=== PATIENT | female | born 1980 | race Caucasian/White ===

== ENCOUNTER 2017-12-11 07:55 | Observation (INO) | payer OTHER ==
[~2017-12-11] VITALS: Ht 160 cm; Wt 89.4 kg
[~2017-12-11 07:55] MED LIST: DSS100 PO; FERR-89 PO; IBUP-2071 PO; PERCT PO; PREN1TAB80 PO
[2017-12-11 08:35] VITALS: BP 110/65
== END 2017-12-11 09:10 | disposition home or self-care (01) ==
LOC: 4S 07:55
PROVIDERS: ADMIT Obstetrics & Gynecology; ATTEND Obstetrics & Gynecology
DX: O30.003 Twin pregnancy, unspecified number of placenta and unspecified number of amniotic sacs, third trimester (principal); O26.893 Other specified pregnancy related conditions, third trimester; M54.5 Low back pain; O99.333 Smoking (tobacco) complicating pregnancy, third trimester; F17.210 Nicotine dependence, cigarettes, uncomplicated; O09.523 Supervision of elderly multigravida, third trimester; Z3A.36 36 weeks gestation of pregnancy
CPT/HCPCS: 59025; G0378

== ENCOUNTER 2017-12-13 12:25 | Inpatient (IN) | payer OTHER ==
[~2017-12-13] VITALS: Ht 160 cm; Wt 91.6 kg
[2017-12-13] MEDS ORDERED: RINGERS SOLUTION,LACTATED 1,000 ML IV ONE (13:45)
[2017-12-13] MEDS ORDERED: METOCLOPRAMIDE HCL 5 MG/ML 2 ML VIAL IVP ONE (13:45)
[2017-12-13] MEDS ORDERED: CITRIC ACID/SODIUM CITRATE 30 ML SOLUTION UDCUP PO ONE (13:45)
[2017-12-13 14:09] LABS: BASOPHILS % (AUTO) 0.4 % (0.0-2.0); HEMATOCRIT 38.4 % (36-46); HEMOGLOBIN 13.5 g/dL (12.0-16.0); LYMPHOCYTES # (AUTO) 2.2 K/uL (1.0-4.8); MEAN CORPUSCULAR HEMOGLOBIN 34.1 pg (26.0-34.0); MEAN CORPUSCULAR HGB CONC 35.2 G/dL (31.0-37.0); MEAN CORPUSCULAR VOLUME 97 fL (80-100); MONOCYTES # (AUTO) 0.8 K/uL (0.1-1.0); MONOCYTES % (AUTO) 6.3 % (2.0-9.0); NEUTROPHILS # (AUTO) 9.2 K/uL (1.8-7.7); NEUTROPHILS % (AUTO) 74.3 % (40.0-70.0); PLATELET COUNT (AUTO)-OB 198 K/uL (150-450); RED BLOOD CELL COUNT(AUTO) 3.96 MIL/uL (4.00-5.20); RED CELL DISTRIBUTION WIDTH 13.7 % (11.5-14.5)
[2017-12-13 16:46] VITALS: BP 118/74
[2017-12-14] MEDS ORDERED: METOCLOPRAMIDE HCL 5 MG/ML 2 ML VIAL IVP ONE (06:00)
[2017-12-14] MEDS ORDERED: CITRIC ACID/SODIUM CITRATE 30 ML SOLUTION UDCUP PO ONE (06:00)
[2017-12-14] MEDS ORDERED: MORPHINE SULFATE/PF 0.5 MG/ML 10 ML AMP ONE (06:21)
[2017-12-14] MEDS ORDERED: FentaNYL CITRATE-PF 100 MCG/2 ML VIAL ONE (06:21)
[2017-12-14] MEDS ORDERED: ACETAMINOPHEN 1000 MG/ISO-OSM 100 ML IV ONE (06:21)
[2017-12-14] MEDS ORDERED: CeFAZolin 2 GM/DEXTROSE 50 ML IV ONE (06:21)
[2017-12-14] MEDS ORDERED: FentaNYL CITRATE-PF 100 MCG/2 ML VIAL IVP PRN (08:15)
[2017-12-14] MEDS ORDERED: ONDANSETRON HCL 4 MG/2 ML VIAL IVP PRN ×2 (08:15)
[2017-12-14] MEDS ORDERED: NALBUPHINE HCL 10 MG/ML VIAL IVP PRN ×3 (08:15)
[2017-12-14] MEDS ORDERED: DiphenhydrAMINE HCL 50 MG/ML VIAL IVP PRN ×2 (08:15)
[2017-12-14] MEDS ORDERED: NALOXONE HCL 0.4 MG/ML VIAL IVP PRN (08:15)
[2017-12-14] MEDS ORDERED: MORPHINE SULFATE 10 MG/ML SYRINGE IVP PRN (08:15)
[2017-12-14] MEDS ORDERED: DEXAMETHASONE SOD PHOS 4 MG/ML VIAL IVP PRN (08:15)
[2017-12-14] MEDS ORDERED: LANOLIN 7 GM OINTMENT TP PRN (08:45)
[2017-12-14] MEDS ORDERED: ACETAMINOPHEN/CODEINE 300-30 MG TABLET PO PRN (08:45)
[2017-12-14] MEDS: DEXTROSE 5%-0.45% SODIUM CHL 1,000 ML IV SCH ×3 (13:46→20:46)
[2017-12-14] MEDS: ACETAMINOPHEN 1000 MG/ISO-OSM 100 ML IV SCH ×2 (15:55→23:29)
[2017-12-14] MEDS ORDERED: OXYGEN THERAPY IH SCH ×4 (20:00)
[2017-12-14] MEDS: MAGNESIUM HYDROXIDE SUSPENSION 30 ML UDCUP PO SCH (20:46)
[2017-12-15] MEDS: IBUPROFEN 800 MG TABLET PO SCH ×4 (02:31→20:39)
[2017-12-15] MEDS: DEXTROSE 5%-0.45% SODIUM CHL 1,000 ML IV SCH (03:00)
[2017-12-15] MEDS ORDERED: OXYTOCIN 10 UNITS/ML VIAL IM ONE (05:19)
[2017-12-15] MEDS ORDERED: EPHEDrine SULFATE 50 MG/ML VIAL IM ONE (05:19)
[2017-12-15] MEDS ORDERED: LIDOCAINE HCL/PF 2% 5 ML VIAL IM ONE (05:19)
[2017-12-15] MEDS ORDERED: 0.9% SODIUM CHLORIDE 10 ML VIAL IVP ONE (05:19)
[2017-12-15] MEDS ORDERED: METHYLERGONOVINE MALEATE 0.2 MG/ML VIAL ONE (07:25)
[2017-12-15] MEDS: MAGNESIUM HYDROXIDE SUSPENSION 30 ML UDCUP PO SCH ×2 (08:21→20:39)
[2017-12-15] MEDS: ACETAMINOPHEN/CODEINE 300-30 MG TABLET PO PRN ×2 (16:35→23:17)
[2017-12-16] MEDS: IBUPROFEN 800 MG TABLET PO SCH ×4 (02:36→20:45)
[2017-12-16] MEDS: ACETAMINOPHEN/CODEINE 300-30 MG TABLET PO PRN ×4 (06:07→23:33)
[2017-12-16] MEDS: MAGNESIUM HYDROXIDE SUSPENSION 30 ML UDCUP PO SCH ×2 (08:27→20:45)
[2017-12-17] MEDS: IBUPROFEN 800 MG TABLET PO SCH ×2 (01:54→08:10)
[2017-12-17] MEDS: ACETAMINOPHEN/CODEINE 300-30 MG TABLET PO PRN (03:48)
[2017-12-17] MEDS ORDERED: BISACODYL 10 MG RECTAL RECTAL SUPPOSITORY PR ONE (06:15)
[2017-12-17] MEDS: MAGNESIUM HYDROXIDE SUSPENSION 30 ML UDCUP PO SCH (08:10)
[2017-12-17] MEDS ORDERED: SENNA/DOCUSATE SODIUM 187-50 MG TABLET PO ONE (08:45)
== END 2017-12-17 12:40 | disposition home or self-care (01) | DRG 766 ==
LOC: 4S 12:25 → OBSVTOIN 12:25 → 4S 19:32
PROVIDERS: ADMIT Obstetrics & Gynecology; ATTEND Obstetrics & Gynecology
PROC: 10D00Z1 Extraction of Products of Conception, Low, Open Approach (ICD-10-PCS; principal; 2017-12-14)
PROC: 0UB70ZZ Excision of Bilateral Fallopian Tubes, Open Approach (ICD-10-PCS; 2017-12-14)
DX: O34.211 Maternal care for low transverse scar from previous cesarean delivery (principal); Z3A.37 37 weeks gestation of pregnancy; Z37.2 Twins, both liveborn; Z30.2 Encounter for sterilization
CPT/HCPCS: 86850; 86900; 86901; 86920; 87081; 88302; J0131; J0690; J2210; J2274; J2590; J2765; J3010; J3490; J7120